=== PATIENT | male | born 1980 | race Caucasian/White ===

== ENCOUNTER 2016-03-22 13:13 | Emergency (ER) | payer BC, MEDICARE ==
[2016-03-22] MEDS ORDERED: HYDROcodone/Acetaminophen 10/325 mg Tablet ONE (13:32)
[2016-03-22] MEDS ORDERED: Morphine Sulfate 2 MG/ML SYRINGE ONE (13:38)
--- NOTE | 2016-03-22 14:57 | PICIS ---
[facility] EMERGENCY RECORD TRIAGE (FriMar 22, 2016 13:23 EROG) TRIAGE NOTES: swelling and pain to left foot. Dropped a 4x4 on foot. (FriMar 22, 2016 13:23 EROG) PATIENT: NAME: Rei Cote, AGE: 35, GENDER: male, : Fri1980, TIME OF GREET: FriMar 22, 2016 13:14, PREFERRED LANGUAGE: French, ETHNICITY: Not or , FALL RISK: NO, ECODE BILLING MAP: [facility], SSN: [id number], Zip Code: [address], KG WEIGHT: 131.54, HEIGHT/LENGTH: 172.72cm, BMI: 44.09, PHONE: , , , PERSON ID: [id number], PCP: Dr. Marrero. (FriMar 22, 2016 13:23 EROG) COMPLAINT: PAINFUL L FOOT. (FriMar 22, 2016 13:23 EROG) ADMISSION: URGENCY: 4 Non Urgent, ADMISSION SOURCE: Home, TRANSPORT: CAR, BED: ED -03. (FriMar 22, 2016 13:23 EROG) ASSESSMENT: Assessment: swelling and pain to left mid upper foot, Symptoms began 1 hour ago. (13:27 EROG) PAIN: Patient complains of pain described as, aching, on a scale 0-10 patient rates pain as 9, Pain is constant, Aggravating factors:, Aggravating factors include walking, No relieving factors. (13:27 EROG) SIRS SCORING: Heart Rate 55-109 (0), Temp range 96.8-101.1 (0), respiratory rate 12-24 (0), Mental Status altered: no (0), Infection or Suspected Infection: No. (13:27 EROG) PROVIDERS: TRIAGE NURSE: Jhonathan Aceves RN. (FriMar 22, 2016 13:23 EROG) VITAL SIGNS: BP 136/85, Pulse 106, Resp 18, Temp 98.4, (Tympanic), Pain 9, (Constant), O2 Sat 100, on Room Air, Time 03/22/2016 13:17. (13:17 EROG) PREVIOUS VISIT ALLERGIES: No Known Drug Allergies. (FriMar 22, 2016 13:23 EROG) No Known Drug Allergies. (13:27 EROG) KNOWN ALLERGIES No Known Drug Allergies CURRENT MEDICATIONS No recorded medications VITAL SIGNS VITAL SIGNS: BP: 136/85, Pulse: 106, Resp: 18, Temp: 98.4 (Tympanic), Pain: 9 (Constant), O2 sat: 100 on Room Air, Time: 03/22/2016 13:17. (13:17 EROG) BP: 131/79, Pulse: 89, Resp: 18, Temp: 98.3, Pain: 3, O2 sat: 100 on RA, Time: 03/22/2016 14:45. (14:45 EROG) NURSING ASSESSMENT: EXTREMITY LOWER (14:13 EROG) CONSTITUTIONAL: Patient arrives ambulatory, Gait steady, History obtained from patient, Patient appears, in distress due to pain, Patient cooperative, Patient alert, Oriented to person, place and time, Skin warm, Skin dry, Skin normal in color, Mucous &a-1R&a+25V*p+0X*[id number]*c202B*c15G*c2P*p-0X&a-25V&a+1R Name: Rei Cote : 1980 M35 MedRec: [id number] AcctNum: [id number] Prepared: Sat Mar 23, 2016 03:10 by Interface Page [address] 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 PAIN: aching pain, to the left foot, constant, on a scale 0-10 patient rates pain as 9, Pain exacerbated by, ambulation, Nothing has been tried to alleviate the pain. LEFT LOWER EXTREMITY: Left lower extremity assessment findings include capillary refill less than 2 seconds, Skin color normal, Skin temperature warm, Distal sensation intact, Muscle tone normal, muscle strength 4, +3 edema present, posterior tibia pulse is +3, dorsalis pedis pulse is +3, Inspection findings include contusion, to left upper mid foot. NURSING PROCEDURE: DISCHARGE NOTE (14:45 EROG) DISCHARGE: Patient discharged to home, in a wheelchair, friend driving, accompanied by friend, Summary of Care printed/ provided, Patient requested and was provided an electronic copy of Discharge Instructions, Transition record given to patient, Discharge instructions given to patient, Simple or moderate discharge teaching performed, by Ryley ACEVES RN, Above person(s) verbalized understanding of discharge instructions and follow-up care. BELONGINGS: Belongings remain with patient, Valuables remain with patient. VITAL SIGNS: BP: 131, / 79, Pulse: 89, Resp: 18, Temp: 98.3, Pain: 3, O2 sat: 100, on: RA, Time: 1443. NURSING PROCEDURE: SPLINTING (14:20 EROG) PATIENT IDENTIFIER: Patient actively involved in identification process, Patient's identity verified by patient stating name, Patient's identity verified by hospital ID bracelet. SPLINTING: Splinting indicated for contusion, Splint applied to, on the left foot, by Dr. Khoury, 4 inch marito wrap applied, Immobilized in position of comfort. NOTES: Patient tolerated procedure well. NURSING PROCEDURE: TRANSPORT TO TESTS (13:45 EROG) PATIENT IDENTIFIER: Patient actively involved in identification process, Patient's identity verified by patient stating name, Patient's identity verified by patient stating date, Patient's identity verified by hospital ID bracelet. TRANSPORT TO TESTS: Transport indicated to facilitate diagnosis, Patient transported to x-ray, Accompanied by x-ray educational technician, Portable at bedside. ORDER DETAILS Order Name: Miscellaneous Nurse Order(s), Status: Active, Time: 14:12 03/22/2016, User: [facility], - Ordered for: MD Khoury Darren, &a-1R&a+25V*p+0X*[id number]*c202B*c15G*c2P*p-0X&a-25V&a+1R Name: Rei Cote : 1980 M35 MedRec: [id number] AcctNum: [id number] Prepared: Sat Mar 23, 2016 03:10 by Interface Page [address] [facility] EMERGENCY RECORD - Entered by: MD Khoury Darren - [facility] Mar 22, 2016 14:12, - Quantity: 1, Order Name: XR Foot Lt 2 View, Status: Canceled, Time: 13:49 03/22/2016, User: System, - Ordered for: MD Khoury Darren, - Entered by: MD Khoury Darren - FriMar 22, 2016 13:33, - Quantity: 1. MEDICATION ADMINISTRATION SUMMARY Drug Name: HYDROcodone-acetaminophen, Dose Ordered: 10/325 tab(s), Route: Oral, Status: Canceled, Time: 13:35 03/22/2016, Drug Name: morphine injection, Dose Ordered: 10 mg, Route: Intramuscular, Status: Given, Time: 13:43 03/22/2016, Detailed record available in Medication Service section. MEDICATION SERVICE morphine injection: Order: morphine injection (morphine sulfate) - Dose: 10 mg : Intramuscular Schedule: Now Ordered by: Ramon Khoury MD Entered by: Ramon Khoury MD FriMar 22, 2016 13:36 , Acknowledged by: Jhonathan Aceves RN FriMar 22, 2016 13:43 Documented as given by: Jhonathan Aceves RN FriMar 22, 2016 13:43 Patient, Medication, Dose, Route and Time verified prior to administration. IM medication, Amount given: 10 mg, Medication administered to right buttock, Patient appears Awake and alert- acceptable, Correct patient, time, route, dose and medication confirmed prior to administration, Patient advised of actions and side-effects prior to administration, Allergies confirmed and medications reviewed prior to administration, Patient tolerated procedure well, Patient in position of comfort, Side rails up, Cart in lowest position, Friend at bedside, Call light in reach, Pain rating of 9/10. (CANCELED) HYDROcodone-acetaminophen: Order: HYDROcodone-acetaminophen (hydrocodone bitartrate/acetaminophen) - Dose: 10/325 tab(s) : Oral Schedule: Now Ordered by: Ramon Khoury MD Entered by: Ramon Khoury MD FriMar 22, 2016 13:32 Canceled by: Ramon Khoury MD. FriMar 22, 2016 13:35 Cancel reason: pt says hydrocodone causes itching and rash but can take morphine without problems. HPI FOOT (13:37 DHAM) CHIEF COMPLAINT: Patient presents for evaluation of injury, to the left foot. HISTORIAN: History provided by patient, Pt dropped a 3 foot long wood 4x4 from chest high onto the dorsum of his left foot. c/o pain and deformity to left foot. has h/o "a plate in my foot" from tophaceous gout &a-1R&a+25V*p+0X*s7069U*c202B*c15G*c2P*p-0X&a-25V&a+1R Name: Rei Cote : 1980 M35 MedRec: [id number] AcctNum: [id number] Prepared: Bon Mar 23, 2016 03:10 by Interface Page [address] [facility] EMERGENCY RECORD surgery. 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 Used morphine last month without probs for gouty pain. MECHANISM OF INJURY: Mechanism of injury: Blunt trauma, by direct blow. LOCATION: Symptoms are localized, most severe in the third metatarsal. QUALITY: Pain is dull in nature, described as aching. SEVERITY: Current severity of pain rated as 9/10. TIME COURSE: Sudden onset of symptoms, 1, hours prior to arrival, There has been no change in the patient's symptoms over time. ASSOCIATED WITH: No associated alcohol use, No associated ankle pain, No associated coolness to touch, No associated distal injury, No associated distal neuro complaint, No associated erythema, No associated fever, No associated hip pain, No associated inability to ambulate, No associated inability to bear weight, No associated knee pain, No associated open wounds, Associated with pain on walking, No associated tingling, No associated warmth, No associated weakness distal to injury. EXACERBATED BY: Patient's condition exacerbated by walking, Patient's condition exacerbated by bearing weight. RELIEVED BY: Patient's condition relieved by remaining still, Patient's condition relieved by rest. ROS (13:41 DHA) MUSCULOSKELETAL: h/o severe tophaceous gout with multiple surgeries. trauma and pain to left dorsum of the foot. SKIN: Historian denies rash, denies skin changes, denies skin lesions. NEUROLOGIC: Historian denies focal weakness, denies paralysis, denies paresthesias, denies sensory changes. HEMO/LYMPHATIC: Historian denies abnormal blood clotting, denies easy bruising. ALLERGIC/IMMUNOLOGIC: Historian denies frequent infections, denies hives. PAST MEDICAL HISTORY (13:27 EROG) MEDICAL HISTORY: Flu vaccine up to date, Date of immunization: 02/08, Tetanus immunization up to date, Date of immunization: 02/08, Flu vaccine up to date, Tetanus immunization up to date, Notes: GOUT, BARTTER'S SYNDROME, GI BLEED, ARF (02/2012). reviewed 01/15/16.verifed 03/22/16. MALE SURGICAL HISTORY: BILATERAL HAND SURGERY, LEFT KNEEx 2 , LEFT ANKLE, right elbow, GOUT CRYSTAL SCRAPING, Surgical history of tonsillectomy.reviewed 01/15/16. right ankle. verified 03/22/16. PSYCHIATRIC HISTORY: no previous inpatient psychiatric admissions, Psychiatric history includes, anxiety, depression.reviewed 01/15/16. verified 03/22/16. SOCIAL HISTORY: Patient denies alcohol use, Patient denies drug use, Patient has no smoking history, Patient denies alcohol use, Patient denies drug use, Patient is a former tobacco user, smoked &a-1R&a+25V*p+0X*f7280D*c202B*c15G*c2P*p-0X&a-25V&a+1R Name: Rei Cote : 1980 M35 MedRec: [id number] AcctNum: [id number] Prepared: Bon Mar 23, 2016 03:10 by Interface Page [address] [facility] EMERGENCY RECORD cigarettes, Patient quit smoking less than 10 years ago. verified 03/22/16. PHYSICAL EXAM (13:44 DHAM) CONSTITUTIONAL: Vital Signs Reviewed, Patient afebrile, Pulse, tachycardic, Blood pressure normal, Respiratory rate, Patient appears non toxic, Patient appears, in moderate pain distress, Patient alert and oriented to person, place and time, Nursing notes reviewed. HEAD: Head exam included findings of head atraumatic, normocephalic. LOWER EXTREMITY: Lower extremity exam included findings of inspection abnormal, no abrasions, no contusions, deformity present, no lacerations, swelling dorsum of the left foot with diffuse tenderness of the metatarsals 1-4. well healed surgical scar along 2nd metatarsal., Range of motion, Motor strength normal, Sensation intact, Posterior tibial pulse normal, Pedal pulse normal, Salvador's negative, distal pulses intact, capillary refill less than 2 seconds, distal motor intact, distal sensory intact, no calf tenderness, no palpable cords, left leg as well as right leg otherwixe not involved with nl rom., Patient is able to walk at least 4 steps. NEURO: [place] coma scale 15, Neuro exam findings include patient oriented to person, place and time, Speech normal, Gait abnormal, with limp, antalgic gait on left foot, no focal motor deficits, no focal sensory deficits. SKIN: Skin exam included findings of skin warm, dry, and normal in color, no rash. EVENTS TRANSFER: Triage to Emergency Main ED -03. (FriMar 22, 2016 13:23 EROG) Removed from Emergency Main ED -03. (14:48 EROG) RADIOLOGYINTERPRETATION (14:06 DHAM) LOWER EXTREMITIES: Foot films negative, on the left, no fracture, no dislocation, no foreign body, no bony lesion, no degenerative joint disease, hardware looks intact to my exam without loosening. O2SAT INTERPRETATION (14:07 DHAM) O2SAT: Single pulse oximetry, Oxygen saturation 100%, on room air, Oxygen saturation interpretation: Normal, No intervention required. DOCTOR NOTES (14:09 DHAM) TEXT: xray looks fine. Pt reports that his pain is down to a 3/10 and he is not somnolent at all. Pt is here with his father who is driving. Appears stable for discharge. PROBLEM LIST &a-1R&a+25V*p+0X*v7825Q*c202B*c15G*c2P*p-0X&a-25V&a+1R Name: Rei Cote : 1980 M35 MedRec: [id number] AcctNum: [id number] Prepared: Sat Mar 23, 2016 03:10 by Interface Page [address] [facility] EMERGENCY RECORD No recorded problems DIAGNOSIS (14:08 DHAM) FINAL: PRIMARY: contusion foot. DISPOSITION PATIENT: Disposition Type: Discharge, Disposition: *Discharge Home. (14:08 DHAM) Patient left the department. (14:48 EROG) INSTRUCTION (14:09 DHAM) DISCHARGE: CONTUSION, LOWER EXTREMITY. SPECIAL: Tylenol 1000mg every six hours for pain Ice on 30 min and off 30 min Elevate above heart level today Range of motion 5 times daily Use marito wrap at all times for next several days Wear supportive footwear and crutches for next several days See your pcp if not improved in the next 7 days or return here for any concerns. PRESCRIPTION No recorded prescriptions IMAGING *DISCHARGE INSTRUCTIONS RECEIPT: Image captured from scanner. (15:23 EROG) *SUPPLY CHARGE SHEET: Image captured from scanner. (15:24 EROG) ADMIN DIGITAL SIGNATURE: JENNY Aceves Eugene. (13:49 EROG) JENNY Aceves Eugene. (15:24 EROG) MD Khoury Darren. ([facility] Mar 23, 2016 02:57 DHA) Yee: DHAM=MD Khoury Darren EROG=JENNY Aceves Eugene &a-1R&a+25V*p+0X*q4087E*c202B*c15G*c2P*p-0X&a-25V&a+1R Name: Kera Rei J : 1980 M35 MedRec: [id number] AcctNum: [id number] Prepared: [facility] Mar 23, 2016 03:10 by Interface Page 6 of 6 pMD MTDD
--- NOTE | 2016-03-22 14:57 | ERRECORD ---
[facility] EMERGENCY RECORD HPI FOOT (13:37 DHAM) CHIEF COMPLAINT: Patient presents for evaluation of injury, to the left foot. HISTORIAN: History provided by patient, Pt dropped a 3 foot long wood 4x4 from chest high onto the dorsum of his left foot. c/o pain and deformity to left foot. has h/o "a plate in my foot" from tophaceous gout surgery. 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 Used morphine last month without probs for gouty pain. MECHANISM OF INJURY: Mechanism of injury: Blunt trauma, by direct blow. LOCATION: Symptoms are localized, most severe in the third metatarsal. QUALITY: Pain is dull in nature, described as aching. SEVERITY: Current severity of pain rated as 9/10. TIME COURSE: Sudden onset of symptoms, 1, hours prior to arrival, There has been no change in the patient's symptoms over time. ASSOCIATED WITH: No associated alcohol use, No associated ankle pain, No associated coolness to touch, No associated distal injury, No associated distal neuro complaint, No associated erythema, No associated fever, No associated hip pain, No associated inability to ambulate, No associated inability to bear weight, No associated knee pain, No associated open wounds, Associated with pain on walking, No associated tingling, No associated warmth, No associated weakness distal to injury. EXACERBATED BY: Patient's condition exacerbated by walking, Patient's condition exacerbated by bearing weight. RELIEVED BY: Patient's condition relieved by remaining still, Patient's condition relieved by rest. ROS (13:41 DHAM) MUSCULOSKELETAL: h/o severe tophaceous gout with multiple surgeries. trauma and pain to left dorsum of the foot. SKIN: Historian denies rash, denies skin changes, denies skin lesions. NEUROLOGIC: Historian denies focal weakness, denies paralysis, denies paresthesias, denies sensory changes. HEMO/LYMPHATIC: Historian denies abnormal blood clotting, denies easy bruising. ALLERGIC/IMMUNOLOGIC: Historian denies frequent infections, denies hives. PAST MEDICAL HISTORY (13:27 EROG) MEDICAL HISTORY: Flu vaccine up to date, Date of immunization: 02/08, Tetanus immunization up to date, Date of immunization: 02/08, Flu vaccine up to date, Tetanus immunization up to date, Notes: GOUT, BARTTER'S SYNDROME, GI BLEED, ARF (02/2012). reviewed 01/15/16.verifed 03/22/16. MALE SURGICAL HISTORY: BILATERAL HAND SURGERY, LEFT KNEEx 2 , LEFT ANKLE, right elbow, GOUT CRYSTAL SCRAPING, Surgical history of tonsillectomy.reviewed 01/15/16. right ankle. verified 03/22/16. &a-1R&a+25V*p+0X*u3680F*c202B*c15G*c2P*p-0X&a-25V&a+1R Name: Rei Cote : 1980 M35 MedRec: [id number] AcctNum: [id number] Prepared: Sat Mar 23, 2016 03:03 by Interface Page 1 of 3 pMD [facility] EMERGENCY RECORD PSYCHIATRIC HISTORY: no previous inpatient psychiatric admissions, Psychiatric history includes, anxiety, depression.reviewed 01/15/16. verified 03/22/16. SOCIAL HISTORY: Patient denies alcohol use, Patient denies drug use, Patient has no smoking history, Patient denies alcohol use, Patient denies drug use, Patient is a former tobacco user, smoked cigarettes, Patient quit smoking less than 10 years ago. verified 03/22/16. KNOWN ALLERGIES No Known Drug Allergies CURRENT MEDICATIONS No recorded medications VITAL SIGNS VITAL SIGNS: BP: 136/85, Pulse: 106, Resp: 18, Temp: 98.4 (Tympanic), Pain: 9 (Constant), O2 sat: 100 on Room Air, Time: 03/22/2016 13:17. (13:17 EROG) BP: 131/79, Pulse: 89, Resp: 18, Temp: 98.3, Pain: 3, O2 sat: 100 on RA, Time: 03/22/2016 14:45. (14:45 EROG) PHYSICAL EXAM (13:44 DHAM) CONSTITUTIONAL: Vital Signs Reviewed, Patient afebrile, Pulse, tachycardic, Blood pressure normal, Respiratory rate, Patient appears non toxic, Patient appears, in moderate pain distress, Patient alert and oriented to person, place and time, Nursing notes reviewed. HEAD: Head exam included findings of head atraumatic, normocephalic. LOWER EXTREMITY: Lower extremity exam included findings of inspection abnormal, no abrasions, no contusions, deformity present, no lacerations, swelling dorsum of the left foot with diffuse tenderness of the metatarsals 1-4. well healed surgical scar along 2nd metatarsal., Range of motion, Motor strength normal, Sensation intact, Posterior tibial pulse normal, Pedal pulse normal, Salvador's negative, distal pulses intact, capillary refill less than 2 seconds, distal motor intact, distal sensory intact, no calf tenderness, no palpable cords, left leg as well as right leg otherwixe not involved with nl rom., Patient is able to walk at least 4 steps. NEURO: [place] coma scale 15, Neuro exam findings include patient oriented to person, place and time, Speech normal, Gait abnormal, with limp, antalgic gait on left foot, no focal motor deficits, no focal sensory deficits. SKIN: Skin exam included findings of skin warm, dry, and normal in color, no rash. RADIOLOGYINTERPRETATION (14:06 DHAM) LOWER EXTREMITIES: Foot films negative, on the left, no fracture, &a-1R&a+25V*p+0X*z6955I*c202B*c15G*c2P*p-0X&a-25V&a+1R Name: Rei Cote : 1980 M35 MedRec: [id number] AcctNum: [id number] Prepared: Bon Mar 23, 2016 03:03 by Interface Page 2 of 3 pMD [facility] EMERGENCY RECORD no dislocation, no foreign body, no bony lesion, no degenerative joint disease, hardware looks intact to my exam without loosening. MEDICATION ADMINISTRATION SUMMARY Drug Name: HYDROcodone-acetaminophen, Dose Ordered: 10/325 tab(s), Route: Oral, Status: Canceled, Time: 13:35 03/22/2016, Drug Name: morphine injection, Dose Ordered: 10 mg, Route: Intramuscular, Status: Given, Time: 13:43 03/22/2016, Detailed record available in Medication Service section. DOCTOR NOTES (14:09 DHAM) TEXT: xray looks fine. Pt reports that his pain is down to a 3/10 and he is not somnolent at all. Pt is here with his father who is driving. Appears stable for discharge. PROBLEM LIST No recorded problems DIAGNOSIS (14:08 DHAM) FINAL: PRIMARY: contusion foot. PRESCRIPTION No recorded prescriptions DISPOSITION PATIENT: Disposition Type: Discharge, Disposition: *Discharge Home. (14:08 RAVI) Patient left the department. (14:48 EROG) Yee: RAVI=MD Iraida, Ramon EROG=JENNY Khan, Jhonathan &a-1R&a+25V*p+0X*m7223Q*c202B*c15G*c2P*p-0X&a-25V&a+1R Name: Rei Cote : 1980 M35 MedRec: [id number] AcctNum: [id number] Prepared: Bon Mar 23, 2016 03:03 by Interface Page 3 of 3 pMD MTDD
--- NOTE | 2016-03-22 15:18 | RAD ---
LEFT FOOT THREE VIEWS: History: Injury to left foot. FINDINGS: Mild enthesophytes are seen from the posterior plantar calcaneus. There are degenerative changes at the tibiotalar joint. Degenerative changes are seen in the intertarsal joints. Prior internal fix ation is noted with plate and screws transfixing the talus to the first and second cuneiforms with f usion at the first and second tarsal metatarsal joints. Secondary degenerative changes are seen in these joints. 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 No evidence of acute fracture identified. IMPRESSION: Post op and degenerative changes of the foot as described. No acute fracture identified. POS: [facility]
== END 2016-03-22 14:45 | disposition home or self-care (01) ==
LOC: MADERS 13:13
DX: S90.32XA Contusion of left foot, initial encounter (principal); Z87.891 Personal history of nicotine dependence; X58.XXXA Exposure to other specified factors, initial encounter
CPT/HCPCS: 96372; J2270

== ENCOUNTER 2016-11-04 23:00 | Emergency (ER) | payer BC, MEDICARE ==
[2016-11-04] MEDS ORDERED: predniSONE 20 MG TAB ONE (23:20)
[2016-11-04] MEDS ORDERED: HYDROcodone/Acetaminophen 10/325 mg Tablet ONE (23:22)
== END 2016-11-04 23:25 | disposition home or self-care (01) ==
LOC: MADERS 23:00
DX: M10.9 Gout, unspecified (principal); F41.9 Anxiety disorder, unspecified; F32.9 Major depressive disorder, single episode, unspecified; Z79.899 Other long term (current) drug therapy
CPT/HCPCS: 99283; J7506

== ENCOUNTER 2018-05-23 09:37 | Emergency (ER) | payer BC, MEDICARE | END 2018-05-23 10:55 | disposition left against medical advice (07) | LOC: MADERS 09:37 | DX: Z53.21 Procedure and treatment not carried out due to patient leaving prior to being seen by health care provider (principal) ==